=== PATIENT | female | born 1985 | race Two or more races ===

== ENCOUNTER 2018-10-06 14:52 | Emergency (ER) | payer SELFPAY | END 2018-10-06 16:58 | disposition home or self-care (01) | LOC: SCSER 14:52 | DX: O99.89 Other specified diseases and conditions complicating pregnancy, childbirth and the puerperium (principal); O99.283 Endocrine, nutritional and metabolic diseases complicating pregnancy, third trimester; E03.9 Hypothyroidism, unspecified; Z3A.34 34 weeks gestation of pregnancy; W19.XXXA Unspecified fall, initial encounter | CPT/HCPCS: 99284 ==